=== PATIENT | female | born 1980 | race Caucasian/White ===

== ENCOUNTER 2018-01-21 02:08 | Outpatient (CLI) | payer OTHER ==
[2018-01-21 03:13] VITALS: BP 120/76
[2018-01-21] MEDS ORDERED: VISTARIL ONE (04:16)
[2018-01-21] MEDS: VISTARIL PO ONE (04:24)
== END 2018-01-21 04:27 | disposition home or self-care (01) ==
LOC: TRG 02:08
PROVIDERS: ATTEND Obstetrics & Gynecology
DX: O47.1 False labor at or after 37 completed weeks of gestation (principal); Z3A.37 37 weeks gestation of pregnancy
CPT/HCPCS: 59025; Q0177